=== PATIENT | male | born 1970 | race Caucasian/White ===

== ENCOUNTER → 2018-01-06 | Day surgery (SDC) | payer OTHER ==
[~2018-01-06] VITALS: Ht 182.9 cm; Wt 83.9 kg
--- NOTE | 2018-01-06 16:36 | Operative Report ---
Operative/Inv Procedure Report Surgery Date: 01/06/18 Name of Procedure: Right ureteroscopy with laser lithotripsy and stent placement Pre-Operative Diagnosis: Right UVJ stone with hydroureteronephrosis Post-Operative Diagnosis: Same Estimated Blood Loss: scant Surgeon/Dehydration Unit Operator: Cecille Vergara MD Anesthesia: laryngeal mask airway Drains: 6 x 28 cm ureteral stent Specimens: Stone fragment Complications: None Condition: Stable Operative Indication: Right UVJ stone causing pain and hydroureteronephrosis Operative/Procedure Note Note: This is a 47-year-old male with a history of of kidney stones who had a renal ultrasound that did not show any stones. They do not comment on the ureteral jets. He continued to have pain on the right side and a CAT scan was performed in the ER was found to have a distal right UVJ stone with hydroureteronephrosis. Given his diagnosis and pain I recommended that he have a ureteroscopy in 2 days to have a treated surgically. He was reluctant but he agreed and he signed consent in the holding area today after giving being given the risks benefits and alternatives of the surgery. The right side was marked in the holding area. Patient was taken to the operating room placed on the operating table in supine position. Timeout was performed and IV antibiotics were infused. LMA anesthesia was begun. He was placed in the dorsolithotomy position. He was prepped and draped in the standard sterile fashion. A cystoscopy was performed the bladder was globally inspected. The bladder had no abnormalities and the ureteral orifice on the right side was easily identified. This was cannulated with a solo part guidewire. This was followed by a semirigid ureteroscope. However the ureteroscope would not traverse beyond the very distal ureter so the ureteroscope was removed and the Solo wire was passed through the semirigid ureteroscope and the ureteroscope was placed into the ureter taking care not to injure the ureter. Upon doing so the stone was encountered and the wire was removed. 278 fiber laser was then used to fragment the stone. A 0 tip basket was then used to remove the fragments in its entirety. The semirigid was then placed back into the ureter and taken up to the UPJ and no additional stones were seen on the way up or on the way down. A wire was placed through the semirigid before it was removed from the ureter. The cystoscope was then used to place a 6 x 28 cm ureteral stent over that Solo wire and with fluoroscopy was seen to be in good position. The wire was removed and the stent was still in good position. The bladder was emptied. The patient tolerated the procedure well. He was transferred to the recovery room stable condition. Findings: Right distal UVJ stone crystalline and yellow in character approximately 4 mm Discharge Disposition: PACU
--- NOTE | 2018-01-08 00:33 | RADIOLOGY REPORT ---
EXAMINATION: CR ABDOMEN/INTRAOPERATIVE FLUOROSCOPY CLINICAL INDICATION: Right ureteroscopy. COMPARISON: None TECHNIQUE/FINDINGS: Fluoroscopic equipment was dedicated to the operating room for the performance of an intraoperative procedure. Several (7) spot films were acquired and are archived in PACS. Please refer to operative notes for procedural detail. FLUOROSCOPY TIME: 8.7 seconds. IMPRESSION: Administrative dictation for intraoperative fluoroscopy and image archiving in PACS. Please refer to operative notes for details.
== END ==
LOC: STS 03:05
DX: N20.1 Calculus of ureter (principal); Z87.442 Personal history of urinary calculi; F17.200 Nicotine dependence, unspecified, uncomplicated; R10.9 Unspecified abdominal pain; K51.90 Ulcerative colitis, unspecified, without complications
CPT/HCPCS: 76000; 82355; C2617; J0131; J0690; J1885; J2250; J2405